=== PATIENT | female | born 1985 | race Caucasian/White ===

== ENCOUNTER 2020-02-18 00:47 | Emergency (ER) | payer MEDICAID ==
--- NOTE | 2020-02-18 01:15 | EDM.PDOC ---
ED HPI GENERAL MEDICAL PROBLEM - General Chief Complaint: Bite:Animal, Insect Stated Complaint: POSSIBLE BLACK BITE - LT LOWER LEG Time Seen by Provider: 02/18/20 01:05 - History of Present Illness INITIAL COMMENTS - FREE TEXT/NARRATIVE: 34-year-old female presents the emergency room with an irritation on her left leg that she believes could have been due to a black . Patient saw black approximately 45 minutes to an hour ago and then developed some itching on her left lower leg. Patient's last tetanus shot was 5 years ago. At this time the itching seems to have resolved. Patient did not do any localized wound care. Does not have any muscle aches or pains. No diaphoresis. Patient denies any other symptoms at this time. ED ROS GENERAL - Review of Systems Review Of Systems: See Below Constitutional: Reports: No Symptoms HEENT: Reports: Vertigo Cardiovascular: Reports: No Symptoms GI/Abdominal: Reports: No Symptoms ED EXAM, ANIMAL BITE - Physical Exam Exam: See Below Exam Limited By: No Limitations General Appearance: Alert, No Apparent Distress Respiratory/Chest: No Respiratory Distress, Lungs Clear, Normal Breath Sounds Cardiovascular: Regular Rate, Rhythm, No Edema, No Murmur Extremities: Other (Nation of her left lower extremity shows a area of redness approximately 3-1/2 x 4 cm slightly redder than the surrounding tissue. Does not have the typical black presentation with central whitening with red borders and peripheral redness. With careful examination I can find no evidence of a bite or sting matthew.) Course - Vital Signs Last Recorded V/S: Last Vital Signs Temp 36.1 C 02/18/20 00:57 Pulse 100 02/18/20 00:57 Resp 16 02/18/20 00:57 BP 106/61 02/18/20 00:57 Pulse Ox 100 02/18/20 00:57 - Re-Assessments/Exams Free Text/Narrative Re-Assessment/Exam: 02/18/20 01:24 The patient had a encounter with a black it is extremely mild. Another insect or arthropod could have been involved however her symptoms are extremely mild and are essentially nonexistent at this point except for a little patch of redness. I have discussed with the patient signs to watch for with envenomation and what can occur with this. At this point the patient is symptom-free I would not recommend any medical management. Departure - Departure Time of Disposition: 01:25 Disposition: Home, Self-Care 01 Clinical Impression: Skin irritation - Discharge Information Referrals: Delphine Francisco PA-C [Primary Care Provider] - Forms: ED Department Discharge Additional Instructions: Return to the emergency room with any questions problems or worsening symptoms. Sepsis Event Note (ED) - Evaluation Sepsis Screening Result: No Definite Risk - Focused Exam Vital Signs: Vital Signs Temp Pulse Resp BP Pulse Ox 02/18/20 00:57 36.1 C 100 16 106/61 100
== END 2020-02-18 01:39 | disposition home or self-care (01) ==
LOC: JD.ED 00:47
DX: L98.8 Other specified disorders of the skin and subcutaneous tissue (principal)
CPT/HCPCS: 99282

== ENCOUNTER 2020-04-28 12:26 | Emergency (ER) | payer MEDICAID ==
--- NOTE | 2020-04-28 14:45 | EDM.PDOC ---
ED HPI GENERAL MEDICAL PROBLEM - General Chief Complaint: Cardiovascular Problem Stated Complaint: HEART PALPITATIONS Time Seen by Provider: 04/28/20 12:41 Source of Information: Reports: Patient History Limitations: Reports: No Limitations - History of Present Illness INITIAL COMMENTS - FREE TEXT/NARRATIVE: The patient presents with palpitations. This has been going on for a couple of days. She says she has a history of SVT. Back in 2012 she had an ablation. She has not had trouble since. She works in the [employer] and gets checked weekly for COVID 19. She has no fever, chills, cough, congestion, runny nose, chest pain, abdominal pain, nausea or vomiting. She does have some shortness of breath with it at times. She says it is almost like she is skipping some beats. She said this happened when she was bus she does not think she is now. Onset: Gradual Duration: Day(s): Improves with: Reports: None Worsens with: Reports: None Associated Symptoms: Reports: Shortness of Breath. Denies: Chest Pain, Cough, Fever/Chills, Headaches, Nausea/Vomiting - Related Data Allergies Allergy/AdvReac Type Severity Reaction Status Date / Time aspirin Allergy Severe Rash Verified 04/28/20 12:42 metronidazole [From Flagyl] Allergy Severe Anaphylactic Verified 04/28/20 12:42 Shock Penicillins Allergy Severe Rash Verified 04/28/20 12:42 Home Meds: Home Meds . 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: Musculoskeletal History: Reports: Fracture Psychiatric History: Reports: Anxiety - Past Surgical History HEENT Surgical History: Reports: Adenoidectomy, Myringotomy w Tube(s), Tonsillectomy Cardiovascular Surgical History: Reports: Cardiac Ablation Female Surgical History: Reports: Breast Implant Musculoskeletal Surgical History: Reports: ORIF Other Musculoskeletal Surgeries/Procedures:: left ankle Social & Family History - Tobacco Use Smoking Status *Q: Never Smoker - Caffeine Use Caffeine Use: Reports: None - Recreational Drug Use Recreational Drug Use: No ED ROS GENERAL - Review of Systems Review Of Systems: See Below Constitutional: Reports: No Symptoms HEENT: Reports: No Symptoms Respiratory: Reports: Shortness of Breath Cardiovascular: Reports: Palpitations. Denies: Chest Pain Endocrine: Reports: No Symptoms GI/Abdominal: Reports: No Symptoms : Reports: No Symptoms Musculoskeletal: Reports: No Symptoms ED EXAM, GENERAL - Physical Exam Exam: See Below Exam Limited By: No Limitations General Appearance: Alert, No Apparent Distress Ears: Normal External Exam Nose: Normal Inspection Head: Atraumatic, Normocephalic Neck: Normal Inspection Respiratory/Chest: No Respiratory Distress, Lungs Clear, Normal Breath Sounds Cardiovascular: Regular Rate, Rhythm, No Edema, No Murmur GI/Abdominal: Soft, Non-Tender, No Organomegaly, No Mass Back Exam: Normal Inspection Extremities: Normal Inspection Neurological: Alert, Oriented, No Motor/Sensory Deficits EKG INTERPRETATION EKG Date: 04/28/20 Time: 12:51 Rhythm: NSR Rate (Beats/Min): 98 [place]: Normal P-Wave: Present QRS: Normal ST-T: Normal QT: Normal Course - Vital Signs Last Recorded V/S: Last Vital Signs Temp 97.3 F 04/28/20 12:38 Pulse 103 H 04/28/20 12:38 Resp 16 04/28/20 12:38 BP 136/85 04/28/20 12:38 Pulse Ox 100 04/28/20 12:38 - Orders/Labs/Meds Orders: Active Orders 24 hr Category Date Time Status Cardiac Monitoring [RC] . DIRECTED Care 04/28/20 13:13 Active EKG 12 Lead [EKG Documentation Completion] [RC] ROUTINE Care 04/28/20 12:51 Active Holter Monitor 48 Hours [RC] .PRN Care 04/28/20 14:38 Ordered CORONAVIRUS COVID-19 PCR PHL Stat Lab 04/28/20 14:37 Ordered Labs: Laboratory Tests 04/28/20 04/28/20 04/28/20 Range/Units 12:48 12:48 12:48 WBC 8.12 (3.98-10.04) K/mm3 RBC 4.91 (3.98-5.22) M/mm3 Hgb 14.5 (11.2-15.7) gm/dl Hct 44.1 (34.1-44.9) % MCV 89.8 (79.4-94.8) fl MCH 29.5 (25.6-32.2) pg MCHC 32.9 (32.2-35.5) g/dl RDW Std Deviation 38.0 (36.4-46.3) fL Plt Count 217 (182-369) K/mm3 MPV 10.6 (9.4-12.3) fl Neut % (Auto) 64.7 (34.0-71.1) % Lymph % (Auto) 29.8 (19.3-51.7) % [place] % (Auto) 4.8 (4.7-12.5) % Eos % (Auto) 0.4 L (0.7-5.8) Baso % (Auto) 0.2 (0.1-1.2) % Neut # (Auto) 5.25 (1.56-6.13) K/mm3 Lymph # (Auto) 2.42 (1.18-3.74) K/mm3 [place] # (Auto) 0.39 H (0.24-0.36) K/mm3 Eos # (Auto) 0.03 L (0.04-0.36) K/mm3 Baso # (Auto) 0.02 (0.01-0.08) K/mm3 Sodium 143 (136-145) mEq/L Potassium 3.6 (3.5-5.1) mEq/L Chloride 105 (98-107) mEq/L Carbon Dioxide 27 (21-32) mEq/L Anion Gap 14.6 (5-15) BUN 10 (7-18) mg/dL Creatinine 0.7 (0.55-1.02) mg/dL Est Cr Clr Drug Dosing 110.12 mL/min Estimated GFR (MDRD) > 60 (>60) mL/min BUN/Creatinine Ratio 14.3 (14-18) Glucose 94 (74-106) mg/dL Calcium 8.9 (8.5-10.1) mg/dL Magnesium 2.0 (1.8-2.4) mg/dl Total Bilirubin 0.6 (0.2-1.0) mg/dL AST 10 L (15-37) U/L ALT 20 (14-59) U/L Alkaline Phosphatase 54 (46-116) U/L Troponin I 0.021 (0.00-0.056) ng/mL Total Protein 7.7 (6.4-8.2) g/dl Albumin 4.2 (3.4-5.0) g/dl Globulin 3.5 gm/dL Albumin/Globulin Ratio 1.2 (1-2) TSH 3rd Generation 0.878 (0.358-3.74) uIU/mL HCG, Qual Negative (NEGATIVE) - Re-Assessments/Exams Free Text/Narrative Re-Assessment/Exam: 04/28/20 14:44 I ordered an EKG and labs. Her EKG shows a NSR with no acute changes. Her CBC and CMP look good. Her troponin and HCG are negative. Her TSH was normal. I will get her on a holter monitor and check her for COVID 19. Departure - Departure Time of Disposition: 14:45 Disposition: Home, Self-Care 01 Condition: Good Clinical Impression: Palpitations Referrals: PCP,Kirit [Primary Care Provider] - Cheyanne Lebron BEHAVIORAL INSTRUCTOR [Nurse Practitioner] - 1 Week Forms: ED Department Discharge, ED Return to Work/School Form Additional Instructions: Drink plenty of fluids. Wear the holter monitor for a couple of days. Follow up with Cheyanne Lebron in our clinic within a week. Please return if you are worse. Sepsis Event Note (ED) - Evaluation Sepsis Screening Result: No Definite Risk - Focused Exam Vital Signs: Vital Signs Temp Pulse Resp BP Pulse Ox 04/28/20 12:38 97.3 F 103 H 16 136/85 100 - My Orders Last 24 Hours: My Active Orders 04/28/20 12:51 EKG 12 Lead [EKG Documentation Completion] [RC] ROUTINE 04/28/20 13:13 Cardiac Monitoring [RC] . DIRECTED 04/28/20 14:37 CORONAVIRUS COVID-19 PCR PHL Stat 04/28/20 14:38 Holter Monitor 48 Hours [RC] .PRN - Assessment/Plan Last 24 Hours: My Active Orders 04/28/20 12:51 EKG 12 Lead [EKG Documentation Completion] [RC] ROUTINE 04/28/20 13:13 Cardiac Monitoring [RC] . DIRECTED 04/28/20 14:37 CORONAVIRUS COVID-19 PCR PHL Stat 04/28/20 14:38 Holter Monitor 48 Hours [RC] .PRN
== END 2020-04-28 15:08 | disposition home or self-care (01) ==
LOC: JD.ED 12:26
DX: R00.2 Palpitations (principal); R06.02 Shortness of breath; J45.909 Unspecified asthma, uncomplicated; Z88.6 Allergy status to analgesic agent; Z88.0 Allergy status to penicillin; Z88.1 Allergy status to other antibiotic agents; Z90.49 Acquired absence of other specified parts of digestive tract; Z11.59 Encounter for screening for other viral diseases
CPT/HCPCS: 36415; 80053; 83735; 84443; 84484; 84703; 85025; 93005; 93010; 93225; 93226; 99283; 99285-25; U0002

== ENCOUNTER 2021-05-23 12:31 | Emergency (ER) | payer BC, MEDICAID ==
--- NOTE | 2021-05-23 13:40 | CR ---
Chest: Portable view of the chest was obtained. Comparison: No prior chest imaging is available. Heart size and mediastinum are within normal limits. Lungs are clear with no definite acute parenchymal change. Bony structures appear within normal limits. Impression: 1. No definite acute intrathoracic process is seen. If patient remains symptomatic, follow-up 2-view chest x-ray in 24-48 hours is then recommended. Diagnostic code #1
--- NOTE | 2021-05-23 14:15 | EDM.PDOC ---
ED HPI GENERAL MEDICAL PROBLEM - General Chief Complaint: Respiratory Problem Stated Complaint: COVID SYMPTOMS Time Seen by Provider: 05/23/21 13:12 Source of Information: Reports: Patient, EMS, RN Notes Reviewed - History of Present Illness INITIAL COMMENTS - FREE TEXT/NARRATIVE: 36 yr old female had onset of loss taste and smell about 4 days ago, followed by cough, Duong, body aches, diarrhea, loss of appetite. No major difficulty breathing. Unvaccinated. Anterior Frontal Headache Pain Score (Numeric/FACES): 6 - Related Data Allergies Allergy/AdvReac Type Severity Reaction Status Date / Time aspirin Allergy Severe Rash Verified 05/23/21 13:12 metronidazole [From Flagyl] Allergy Severe Anaphylactic Verified 05/23/21 13:12 Shock Penicillins Allergy Severe Rash Verified 05/23/21 13:12 Home Meds: Home Meds Hydrocodone/Acetaminophen [HYDROcodone-Acetaminophen 5-325 MG] 1 each PO Q6HR PRN #10 tab 05/23/21 [Rx] Ondansetron [Zofran ODT] 4 mg PO Q8HR PRN #7 tab.dis 05/23/21 [Rx] Past Medical History Cardiovascular History: Reports: Other (See Below) Other Cardiovascular History: SVT Respiratory History: Reports: Asthma Gastrointestinal History: Reports: None Genitourinary History: Reports: None 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: Musculoskeletal History: Reports: Fracture Neurological History: Reports: Migraines Psychiatric History: Reports: Anxiety Endocrine/Metabolic History: Reports: None Hematologic History: Reports: None Immunologic History: Reports: None Oncologic (Cancer) History: Reports: None Dermatologic History: Reports: None - Infectious Disease History Infectious Disease History: Reports: Chicken Pox Other Infectious Disease History: staff 2004 left collar bone - Past Surgical History HEENT Surgical History: Reports: Adenoidectomy, Myringotomy w Tube(s), Tonsillectomy Cardiovascular Surgical History: Reports: Cardiac Ablation Female Surgical History: Reports: Breast Implant Musculoskeletal Surgical History: Reports: ORIF Other Musculoskeletal Surgeries/Procedures:: left ankle 1997 Social & Family History - Tobacco Use Tobacco Use Status *Q: Never Tobacco User Second Hand Smoke Exposure: No - Caffeine Use Caffeine Use: Reports: None - Recreational Drug Use Recreational Drug Use: No ED ROS GENERAL - Review of Systems Review Of Systems: See Below Constitutional: Reports: Fever, Chills HEENT: Reports: Rhinitis. Denies: Throat Pain Respiratory: Reports: Cough. Denies: Shortness of Breath, Wheezing Cardiovascular: Denies: Chest Pain GI/Abdominal: Reports: Diarrhea, Decreased Appetite, Nausea. Denies: Abdominal Pain Skin: Reports: No Symptoms Neurological: Reports: Headache ED EXAM, GENERAL - Physical Exam Exam: See Below General Appearance: Alert, No Apparent Distress Head: Atraumatic Neck: Supple Respiratory/Chest: No Respiratory Distress, Lungs Clear, Normal Breath Sounds. No: Rhonchi, Wheezing Cardiovascular: Tachycardia GI/Abdominal: Non-Tender Extremities: No: Leg Pain, Increased Warmth, Redness Neurological: Alert, Oriented, No Motor/Sensory Deficits Skin Exam: Warm, Dry, Normal Color Course - Vital Signs Last Recorded V/S: Last Vital Signs Temp 99.2 F 05/23/21 13:03 Pulse 103 H 05/23/21 13:03 Resp 18 05/23/21 13:03 BP 127/74 05/23/21 13:03 Pulse Ox 97 05/23/21 13:03 - Re-Assessments/Exams Free Text/Narrative Re-Assessment/Exam: 05/24/21 07:50 CXR clear, discharge instr. as documented. Departure - Departure Time of Disposition: 14:09 Disposition: Home, Self-Care 01 Condition: Fair Clinical Impression: COVID-19 virus infection - Discharge Information Prescriptions: Hydrocodone/Acetaminophen [HYDROcodone-Acetaminophen 5-325 MG] 1 each PO Q6HR PRN #10 tab PRN Reason: Pain Ondansetron [Zofran ODT] 4 mg PO Q8HR PRN #7 tab.dis PRN Reason: Nausea/Vomiting Instructions: COVID-19 Frequently Asked Questions Referrals: Delphine Francisco PA-C [Primary Care Provider] - Forms: ED Department Discharge Additional Instructions: Rest. Drink plenty of fluids to maintain hydration. Zofran q 8 to 12 hrs if needed for nausea or vomiting. Tylnenol q 6 to 8 hr for mild to moderate discomfort or hydrocodone if needed for more severe discomfort. I recomend take 1/2 tablet hydrocodone with 500 mg tylenol q 6 hr as needed until feeling better. Ativan 0.25 mg 1 hr before bedtime to help you rest and sleep. Continue to self isolate. Return to ED as needed, especially for severe difficulty breathing should that occur. Sepsis Event Note (ED) - Evaluation Sepsis Screening Result: No Definite Risk
== END 2021-05-23 14:37 | disposition home or self-care (01) ==
LOC: JD.ED 12:31
DX: U07.1 COVID-19 (principal); J45.909 Unspecified asthma, uncomplicated; Z88.8 Allergy status to other drugs, medicaments and biological substances; Z88.1 Allergy status to other antibiotic agents; Z88.0 Allergy status to penicillin
CPT/HCPCS: 71045; 71045-26; 99283; 99284-25

== ENCOUNTER 2021-07-22 19:14 | Emergency (ER) | payer BC ==
--- NOTE | 2021-07-22 20:54 | EDM.PDOC ---
ED HPI GENERAL MEDICAL PROBLEM - General Chief Complaint: Headache Stated Complaint: BLURRY VISION "FEELS FOGGY" Time Seen by Provider: 07/22/21 20:33 Source of Information: Reports: Patient, RN Notes Reviewed History Limitations: Reports: No Limitations - History of Present Illness INITIAL COMMENTS - FREE TEXT/NARRATIVE: Patient is a 36-year-old female who presents to the ER for her headache, blurred vision and feelings of being "foggy". Patient did have COVID-19 this fall, and states that she just has not felt right since then. She also has some cardiac abnormalities that she is getting worked up at the [facility] for. Patient states that over the past few days she has had a headache on the right side of her face, behind her right eye, that seems to come to come in waves. Also states that she has a history of migraine/headaches and this does not feel similar to her migraines. She states that her whole head kind of feels as if it is in a fish bowl. She states that when she stares at something, she feels as if her eyes are moving in a horizontal fashion, [id number]. She has not taken any sort of medications for her headache. She has not having any vomiting or diarrhea but she is having some nausea. No other sick symptoms like fevers or chills, cough or shortness of breath. Primary care provider is Delphine Francisco. Headache Pain Score (Numeric/FACES): 5 - Related Data Allergies Allergy/AdvReac Type Severity Reaction Status Date / Time aspirin Allergy Severe Rash Verified 07/22/21 20:24 metronidazole [From Flagyl] Allergy Severe Anaphylactic Verified 07/22/21 20:24 Shock Penicillins Allergy Severe Rash Verified 07/22/21 20:24 Home Meds: Home Meds . 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: Musculoskeletal History: Reports: Fracture Neurological History: Reports: Migraines Psychiatric History: Reports: Anxiety - Infectious Disease History Infectious Disease History: Reports: Chicken Pox, Novel Coronavirus Other Infectious Disease History: h 2004 left collar bone - Past Surgical History HEENT Surgical History: Reports: Adenoidectomy, Myringotomy w Tube(s), Tonsillectomy Cardiovascular Surgical History: Reports: Cardiac Ablation Female Surgical History: Reports: Breast Implant Musculoskeletal Surgical History: Reports: ORIF Other Musculoskeletal Surgeries/Procedures:: left ankle 1998 Social & Family History - Tobacco Use Tobacco Use Status *Q: Never Tobacco User Second Hand Smoke Exposure: No - Caffeine Use Caffeine Use: Reports: None - Recreational Drug Use Recreational Drug Use: No ED ROS GENERAL - Review of Systems Review Of Systems: Comprehensive ROS is negative, except as noted in HPI. - Physical Exam Exam: See Below Exam Limited By: No Limitations General Appearance: Alert, WD/WN, No Apparent Distress Eye Exam: Bilateral Eye: EOMI, Normal Inspection, PERRL Respiratory/Chest: No Respiratory Distress, Lungs Clear, Normal Breath Sounds, No Accessory Muscle Use, Chest Non-Tender Cardiovascular: Normal Peripheral Pulses, Regular Rate, Rhythm, No Edema GI/Abdominal: Normal Bowel Sounds, Soft, Non-Tender, No Distention, No Mass Neuro Exam (Abbreviated): Alert, Oriented, Normal Cognition, No Motor/Sensory Deficits Extremities: Normal Inspection, Normal Capillary Refill Psychiatric: Normal Affect, Normal Mood Skin Exam: Warm, Dry, Intact, Normal Color, No Rash Course - Vital Signs Last Recorded V/S: Last Vital Signs Temp 98.0 F 07/22/21 20:22 Pulse 88 07/22/21 20:22 Resp 15 07/22/21 20:22 BP 125/79 07/22/21 20:22 Pulse Ox 99 07/22/21 20:22 - Orders/Labs/Meds Orders: Active Orders 24 hr Category Date Time Status Head wo Cont [CT] Stat Exams 07/22/21 20:46 Ordered Labs: Laboratory Tests 07/22/21 Range/Units 20:15 Influenza Type A RNA Negative (NEGATIVE) Influenza Type B RNA Negative (NEGATIVE) SARS-CoV-2 RNA (KYRA) Negative (NEGATIVE) - Re-Assessments/Exams Free Text/Narrative Re-Assessment/Exam: 07/22/21 20:53 Patient presents to the ER for her headache and other issues. I did offer to give her medications for her nausea and headache however she declined at this time. Patient is concerned about any sort of neurological issues. We will go ahead and do a head CT without contrast for ongoing management. 07/22/21 21:35 COVID/flu screens were negative. CT was read by V read as no acute intracranial findings. Question mild cerebellar tonsillar ectopia correlate with clinical history. Consider follow-up elective MRI. Cerebellar tonsils particular the right cerebellar tonsil appears to be somewhat low-lying. I did discuss this with Dr. Villaseñor and he believes this might be a Chiari malformation, but this should be of no clinical concern for tonight's purposes. I did go over these findings with the patient and she verbalized understanding. She does state that Delphine Francisco thought maybe she should see a neurologist, and I do think this would be warranted. Departure - Departure Time of Disposition: 21:37 Disposition: Home, Self-Care 01 Condition: Good Clinical Impression: Headache above the eye region - Discharge Information *PRESCRIPTION DRUG MONITORING PROGRAM REVIEWED*: No *COPY OF PRESCRIPTION DRUG MONITORING REPORT IN PATIENT MARILYN: No Instructions: General Headache Without Cause, [id number] Referrals: Delphine Francisco PA-C [Primary Care Provider] - Forms: ED Department Discharge Additional Instructions: You were evaluated in the ER today for your ongoing headache. Head CT demonstrated no acute abnormality such as bleeds or masses. There is some question about l incidental findings, that might require outpatient MRI for further evaluation. You should talk with your provider, Delphine Francisco to see if you can get a consultation to neurology for further investigation. I would recommend that you take Tylenol ibuprofen every 6 hours as needed for ongoing headache. Do not hesitate to return to the ER at any time if symptoms change or worsen. Sepsis Event Note (ED) - Focused Exam Vital Signs: Vital Signs Temp Pulse Resp BP Pulse Ox 07/22/21 20:22 98.0 F 88 15 125/79 99 - My Orders Last 24 Hours: My Active Orders 07/22/21 20:46 Head wo Cont [CT] Stat - Assessment/Plan Last 24 Hours: My Active Orders 07/22/21 20:46 Head wo Cont [CT] Stat
[2021-07-22 21:19] LABS: CORONAVIRUS COVID-19 NAA NEGATIVE (NEGATIVE)
--- NOTE | 2021-07-23 08:32 | CT ---
Head CT Technique: Multiple axial sections through the brain were obtained. Intravenous contrast was not utilized. Reconstructed coronal and sagittal images were obtained. Comparison: No prior intracranial imaging is available. Findings: Ventricles along with basal cisterns and sulci over the convexities are within normal limits for the patient's age. No abnormal parenchymal densities are seen. No evidence of intracranial hemorrhage is seen. No midline shift or mass-effect is seen. On the lateral reconstructed view there is slight descent of the cerebellar tonsils below the foramen magnum which measures around 3 mm. This is most likely a normal variant although MRI would be needed to confirm this finding. Bone window settings were reviewed. Visualized mastoid sinuses and paranasal sinuses show nothing acute. Impression: 1. Slight descent of the cerebellar tonsils below the foramen magnum by about 3 mm. I believe this is likely incidental although MRI is recommended to confirm. MRI can be performed non-emergently. 2. Other portions of the noncontrast head CT study appear unremarkable. 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
== END 2021-07-22 21:41 | disposition home or self-care (01) ==
LOC: JD.ED 19:14
DX: R51.9 Headache, unspecified (principal); Z88.0 Allergy status to penicillin; Z88.1 Allergy status to other antibiotic agents; Z88.8 Allergy status to other drugs, medicaments and biological substances; Z20.822 Contact with and (suspected) exposure to COVID-19
CPT/HCPCS: 0240U; 70450; 99284

== ENCOUNTER 2022-01-28 14:22 | Emergency (ER) | payer BC ==
[2022-01-28] MEDS ORDERED: Sodium Chloride 0.9% 10 ML Syringe FLUSH PRN (17:20)
[2022-01-28 18:09] LABS: CORONAVIRUS COVID-19 NAA NEGATIVE (NEGATIVE)
[2022-01-28 18:10] LABS: ESTIMATED GFR 116 mL/min (>60)
== END 2022-01-28 20:12 | disposition home or self-care (01) ==
LOC: JD.ED 14:22
DX: R53.83 Other fatigue (principal); R19.7 Diarrhea, unspecified; Z88.0 Allergy status to penicillin; Z88.6 Allergy status to analgesic agent; Z88.1 Allergy status to other antibiotic agents; Z86.16 Personal history of COVID-19; Z20.822 Contact with and (suspected) exposure to COVID-19
CPT/HCPCS: 0240U; 36415; 71045; 80053; 81003; 81025; 83735; 84443; 84484; 85025; 85379; 86140; 87045; 87046; 87493; 87899; 93005; 99284; J3490

== ENCOUNTER 2022-06-28 18:32 | Emergency (ER) | payer MEDICAID ==
[2022-06-28] MEDS ORDERED: Sodium Chloride 0.9% 10 ML Syringe FLUSH PRN (18:52)
== END 2022-06-28 21:43 | disposition home or self-care (01) ==
LOC: JD.ED 18:32
DX: O44.02 Complete placenta previa NOS or without hemorrhage, second trimester (principal); Z3A.15 15 weeks gestation of pregnancy; Z88.6 Allergy status to analgesic agent; Z88.0 Allergy status to penicillin; Z79.899 Other long term (current) drug therapy
CPT/HCPCS: 36415; 76815; 84702; 85025; 86900; 86901; 99284; J3490

== ENCOUNTER 2022-07-19 06:47 | Emergency (ER) | payer MEDICAID ==
[2022-07-19] MEDS ORDERED: Sodium Chloride 0.9% 10 ML Syringe FLUSH PRN (08:51)
[2022-07-19] MEDS ORDERED: Ondansetron 4 MG/2 ML SDV IVPUSH ONE (08:51)
[2022-07-19] MEDS ORDERED: Sodium Chloride 0.9% 1,000 ML IV SCH (09:00)
[2022-07-19 10:41] LABS: CORONAVIRUS COVID-19 NAA POSITIVE (NEGATIVE)
== END 2022-07-19 13:14 | disposition home or self-care (01) ==
LOC: JD.ED 06:47
DX: O41.8X20 Other specified disorders of amniotic fluid and membranes, second trimester, not applicable or unspecified (principal); O98.512 Other viral diseases complicating pregnancy, second trimester; U07.1 COVID-19; O20.9 Hemorrhage in early pregnancy, unspecified; Z88.0 Allergy status to penicillin; Z88.8 Allergy status to other drugs, medicaments and biological substances; Z88.1 Allergy status to other antibiotic agents; Z86.16 Personal history of COVID-19; Z3A.18 18 weeks gestation of pregnancy
CPT/HCPCS: 0241U; 36415; 76816; 76816-26; 80053; 81001; 85025; 96361; 96374; 99284-25; J2405; J3490; J7030

== ENCOUNTER 2022-12-01 06:17 | Emergency (ER) | payer OTHER, MEDICAID ==
[2022-12-01 07:26] LABS: BASOPHILS ABSOLUTE AUTO 0.02 K/mm3 (0.01-0.08); BASOPHILS PERCENT AUTO 0.2 % (0.1-1.2); EOSINOPHILS ABSOLUTE AUTO 0.09 K/mm3 (0.04-0.36); EOSINOPHILS PERCENT AUTO 0.8 (0.7-5.8); HEMATOCRIT 37.7 % (34.1-44.9); HEMOGLOBIN 12.8 gm/dl (11.2-15.7); IMMATURE GRAN ABSOLUTE AUTO 0.04 K/mm3 (0.00-0.10); IMMATURE GRAN PERCENT AUTO 0.4 % (<=1.0); LYMPHOCYTES ABSOLUTE AUTO 4.64 K/mm3 (1.18-3.74); LYMPHOCYTES PERCENT AUTO 40.6 % (19.3-51.7); MEAN CORPUSCULAR HEMOGLOBIN 30.2 pg (25.6-32.2); MEAN CORPUSCULAR VOLUME 88.9 fl (79.4-94.8); MEAN PLATELET VOLUME 12.3 fl (9.4-12.3); MONOCYTES ABSOLUTE AUTO 0.81 K/mm3 (0.24-0.36); MONOCYTES PERCENT AUTO 7.1 % (4.7-12.5); NEUTROPHILS ABSOLUTE AUTO 5.82 K/mm3 (1.56-6.13); NEUTROPHILS PERCENT AUTO 50.9 % (34.0-71.1); PLATELET COUNT,PLT 145 K/mm3 (182-369); RED BLOOD CELL COUNT 4.24 M/mm3 (3.98-5.22); WHITE BLOOD CELL COUNT,WBC 11.42 K/mm3 (3.98-10.04)
[2022-12-01 08:01] LABS: A/G RATIO 0.6 (1-2); ALBUMIN 2.4 g/dl (3.4-5.0); ANION GAP 13.7 (5-15); BILIRUBIN TOTAL 0.2 mg/dL (0.2-1.0); BUN/CREATININE RATIO 11.7 (14-18); CALCIUM 8.6 mg/dL (8.5-10.1); CREATININE 0.6 mg/dL (0.55-1.02); EST CRCL DRUG DOSING (CG) 130.76 mL/min; POTASSIUM,K 3.7 mEq/L (3.5-5.1); PROTEIN TOTAL,TP 6.2 g/dl (6.4-8.2)
== END 2022-12-01 08:48 | disposition home or self-care (01) ==
LOC: JD.ED 06:17
DX: O99.891 Other specified diseases and conditions complicating pregnancy (principal); R07.89 Other chest pain; O13.2 Gestational [pregnancy-induced] hypertension without significant proteinuria, second trimester; O99.512 Diseases of the respiratory system complicating pregnancy, second trimester; J45.909 Unspecified asthma, uncomplicated; Z86.16 Personal history of COVID-19; Z79.899 Other long term (current) drug therapy; Z88.8 Allergy status to other drugs, medicaments and biological substances; Z88.0 Allergy status to penicillin; Z3A.18 18 weeks gestation of pregnancy
CPT/HCPCS: 36415; 80053; 84484; 85025; 93005; 93010; 99283; 99285

== ENCOUNTER 2022-12-28 17:22 | Emergency (ER) | payer OTHER, MEDICAID ==
[2022-12-28] MEDS ORDERED: Sodium Chloride 0.9% 10 ML Syringe FLUSH PRN (17:45)
[2022-12-28 18:36] LABS: BASOPHILS ABSOLUTE AUTO 0.01 K/mm3 (0.01-0.08); BASOPHILS PERCENT AUTO 0.2 % (0.1-1.2); EOSINOPHILS ABSOLUTE AUTO 0.12 K/mm3 (0.04-0.36); EOSINOPHILS PERCENT AUTO 1.9 (0.7-5.8); HEMATOCRIT 42.2 % (34.1-44.9); HEMOGLOBIN 14.1 gm/dl (11.2-15.7); LYMPHOCYTES ABSOLUTE AUTO 3.09 K/mm3 (1.18-3.74); LYMPHOCYTES PERCENT AUTO 48.2 % (19.3-51.7); MEAN CORPUSCULAR HEMOGLOBIN 30.3 pg (25.6-32.2); MEAN CORPUSCULAR HGB CONC 33.4 g/dl (32.2-35.5); MEAN CORPUSCULAR VOLUME 90.6 fl (79.4-94.8); MEAN PLATELET VOLUME 10.8 fl (9.4-12.3); MONOCYTES ABSOLUTE AUTO 0.31 K/mm3 (0.24-0.36); MONOCYTES PERCENT AUTO 4.8 % (4.7-12.5); NEUTROPHILS ABSOLUTE AUTO 2.88 K/mm3 (1.56-6.13); NEUTROPHILS PERCENT AUTO 44.9 % (34.0-71.1); PLATELET COUNT,PLT 190 K/mm3 (182-369); RED BLOOD CELL COUNT 4.66 M/mm3 (3.98-5.22); WHITE BLOOD CELL COUNT,WBC 6.41 K/mm3 (3.98-10.04)
[2022-12-28 19:04] LABS: INR 1.04; PROTHROMBIN TIME 11.1 SECONDS (9.7-12.0)
[2022-12-28 19:05] LABS: PTT,PARTIAL THROMBOPLSTIN TIME 26.5 SECONDS (21.7-31.4)
[2022-12-28 19:16] LABS: A/G RATIO 1.1 (1-2); ALBUMIN 3.7 g/dl (3.4-5.0); ANION GAP 13.6 (5-15); BILIRUBIN TOTAL 0.2 mg/dL (0.2-1.0); CREATININE 0.8 mg/dL (0.55-1.02); EST CRCL DRUG DOSING (CG) 91.01 mL/min; MAGNESIUM 1.9 mg/dL (1.8-2.4); POTASSIUM,K 3.6 mEq/L (3.5-5.1); PROTEIN TOTAL,TP 7.1 g/dl (6.4-8.2)
== END 2022-12-28 19:57 | disposition home or self-care (01) ==
LOC: JD.ED 17:22
DX: R00.1 Bradycardia, unspecified (principal); J45.909 Unspecified asthma, uncomplicated; Z86.16 Personal history of COVID-19; Z88.8 Allergy status to other drugs, medicaments and biological substances; Z88.1 Allergy status to other antibiotic agents; Z88.0 Allergy status to penicillin; Z79.899 Other long term (current) drug therapy
CPT/HCPCS: 36415; 71045; 71045-26; 80053; 83735; 83880; 84484; 85025; 85610; 85730; 93005; 93010; 93246; 99283; 99284

== ENCOUNTER 2024-05-21 21:42 | Emergency (ER) | payer OTHER, MEDICAID ==
[2024-05-21 22:26] LABS: BASOPHILS PERCENT AUTO 0.3 % (0.0-1.0); EOSINOPHILS ABSOLUTE AUTO 0.1 K/mm3 (0.0-0.4); EOSINOPHILS PERCENT AUTO 1.1 % (0.0-6.0); HEMATOCRIT 43.1 % (37.0-47.0); HEMOGLOBIN 14.7 gm/dl (12.0-16.0); IMMATURE GRAN ABSOLUTE AUTO 0.02 K/mm3 (0.00-0.05); IMMATURE GRAN PERCENT AUTO 0.2 % (0.0-0.4); LYMPHOCYTES ABSOLUTE AUTO 6.1 K/mm3 (1.0-4.8); LYMPHOCYTES PERCENT AUTO 56.2 % (24.0-44.0); MEAN CORPUSCULAR HEMOGLOBIN 30.1 pg (28.0-32.0); MEAN CORPUSCULAR HGB CONC 34.1 g/dl (32.0-36.0); MEAN CORPUSCULAR VOLUME 88.3 fl (83.0-99.0); MEAN PLATELET VOLUME 10.8 fl (9.4-12.3); MONOCYTES ABSOLUTE AUTO 0.5 K/mm3 (0.0-0.8); MONOCYTES PERCENT AUTO 4.6 % (0.0-8.0); NEUTROPHILS PERCENT AUTO 37.6 % (41.0-71.0); PLATELET COUNT,PLT 223 K/mm3 (150-400); RED BLOOD CELL COUNT 4.88 M/mm3 (4.10-5.30); WHITE BLOOD CELL COUNT,WBC 10.76 K/mm3 (3.9-11.3)
[2024-05-21 22:43] LABS: A/G RATIO 1.2 (1-2); ALBUMIN 4.4 g/dl (3.4-5.0); ANION GAP 12.3 (5-15); BILIRUBIN TOTAL 0.4 mg/dL (0.2-1.0); BUN/CREATININE RATIO 8.2 (14-18); C-REACTIVE PROTEIN 0.12 mg/dL (<0.30); CREATININE 1.1 mg/dL (0.55-1.02); EST CRCL DRUG DOSING (CG) 64.92 mL/min; POTASSIUM,K 3.3 mEq/L (3.5-5.1); TSH 2.72 uIU/mL (0.358-3.74)
== END 2024-05-21 23:56 | disposition home or self-care (01) ==
LOC: JD.ED 21:42
DX: R07.89 Other chest pain (principal); E28.0 Estrogen excess; J45.909 Unspecified asthma, uncomplicated; I10 Essential (primary) hypertension; Z86.16 Personal history of COVID-19; Z88.1 Allergy status to other antibiotic agents; Z88.6 Allergy status to analgesic agent; Z88.0 Allergy status to penicillin
CPT/HCPCS: 36415; 80053; 82671; 84144; 84443; 84703; 85025; 86140; 93005; 93010; 99282; 99285

== ENCOUNTER 2024-09-16 07:25 | Emergency (ER) | payer OTHER, MEDICAID ==
[2024-09-16 09:11] LABS: BASOPHILS PERCENT AUTO 0.2 % (0.0-1.0); EOSINOPHILS ABSOLUTE AUTO 0.1 K/mm3 (0.0-0.4); EOSINOPHILS PERCENT AUTO 0.9 % (0.0-6.0); HEMATOCRIT 42.4 % (37.0-47.0); HEMOGLOBIN 14.9 gm/dl (12.0-16.0); IMMATURE GRAN ABSOLUTE AUTO 0.01 K/mm3 (0.00-0.05); IMMATURE GRAN PERCENT AUTO 0.2 % (0.0-0.4); LYMPHOCYTES ABSOLUTE AUTO 2.2 K/mm3 (1.0-4.8); LYMPHOCYTES PERCENT AUTO 40.1 % (24.0-44.0); MEAN CORPUSCULAR HEMOGLOBIN 30.6 pg (28.0-32.0); MEAN CORPUSCULAR HGB CONC 35.1 g/dl (32.0-36.0); MEAN CORPUSCULAR VOLUME 87.1 fl (83.0-99.0); MONOCYTES ABSOLUTE AUTO 0.3 K/mm3 (0.0-0.8); MONOCYTES PERCENT AUTO 5.6 % (0.0-8.0); NEUTROPHILS ABSOLUTE AUTO 2.9 K/mm3 (1.8-7.7); PLATELET COUNT,PLT 197 K/mm3 (150-400); RED BLOOD CELL COUNT 4.87 M/mm3 (4.10-5.30); WHITE BLOOD CELL COUNT,WBC 5.54 K/mm3 (3.9-11.3)
[2024-09-16 09:34] LABS: A/G RATIO 1.2 (1-2); ALBUMIN 3.8 g/dl (3.4-5.0); ANION GAP 11.9 (5-15); BILIRUBIN TOTAL 0.6 mg/dL (0.2-1.0); BUN/CREATININE RATIO 8.6 (14-18); CALCIUM 9.2 mg/dL (8.5-10.1); CREATININE 0.7 mg/dL (0.55-1.02); EST CRCL DRUG DOSING (CG) 102.01 mL/min; MAGNESIUM 1.9 mg/dL (1.8-2.4); POTASSIUM,K 3.9 mEq/L (3.5-5.1)
== END 2024-09-16 10:30 | disposition home or self-care (01) ==
LOC: JD.ED 07:25
DX: R51.9 Headache, unspecified (principal); J45.909 Unspecified asthma, uncomplicated; Z86.16 Personal history of COVID-19; Z88.0 Allergy status to penicillin; Z88.6 Allergy status to analgesic agent; Z88.4 Allergy status to anesthetic agent; Z88.8 Allergy status to other drugs, medicaments and biological substances; Z91.018 Allergy to other foods; Z91.041 Radiographic dye allergy status; Z79.899 Other long term (current) drug therapy
CPT/HCPCS: 36415; 70450; 70450-26; 80053; 83036; 83735; 85025; 99284